=== PATIENT | male | born 1980 | race Caucasian/White ===

== ENCOUNTER 2017-03-10 16:44 | Emergency (ER) | payer BC ==
--- NOTE | 2017-03-10 17:23 | UC ---
Abdominal Pain Male HPI - HPI Summary HPI Summary: 36 yo male with the onset of lower abd pain this AM now primarily RLQ nausea/anorexia no fever no vomiting hurts to move no UTI symptoms - History of Current Complaint Chief Complaint: UCGI Stated Complaint: STOMACH PAIN Time Seen by Provider: 03/10/17 17:07 Hx Obtained From: Patient Onset/Duration: Sudden Onset, Lasting Hours Timing: Constant Severity Initially: Mild Severity Currently: Moderate Pain Intensity: 5 Pain Scale Used: 0-10 Numeric Location: Discrete At: RLQ Radiates: No Character: Burning, Cramping Aggravating Factor(s): Food, Movement Alleviating Factor(s): Rest Associated Signs And Symptoms: Positive: Diaphoresis, Nausea - Allergies/Home Medications Allergies/Adverse Reactions: Allergies Allergy/AdvReac Type Severity Reaction Status Date / Time Naproxen [From Aleve] Allergy Itching Verified 03/10/17 16:52 PMH/Surg Hx/FS Hx/Imm Hx Previously Healthy: Yes - Surgical History Surgical History: None - Family History Known Family History: Positive: Hypertension, Other - dad had AAA - Social History Alcohol Use: Occasionally Alcohol Amount: 18 PACK ON WEEKEND Substance Use Type: Marijuana Smoking Status (MU): Former Smoker Review of Systems Constitutional: Negative Skin: Negative Eyes: Negative ENT: Negative Respiratory: Negative Cardiovascular: Negative Gastrointestinal: Abdominal Pain, Nausea Genitourinary: Negative Motor: Negative Neurovascular: Negative Musculoskeletal: Negative Neurological: Negative Psychological: Negative Is Patient Immunocompromised?: No All Other Systems Reviewed And Are Negative: Yes Physical Exam Triage Information Reviewed: Yes Appearance: Well-Nourished, Ill-Appearing, Pain Distress Vital Signs: Initial Vital Signs Temp 98.3 F 03/10/17 16:49 Pulse 85 03/10/17 16:49 Resp 12 03/10/17 16:49 BP 151/102 03/10/17 16:49 Pulse Ox 96 03/10/17 16:49 Vital Signs Reviewed: Yes Eyes: Positive: Conjunctiva Clear ENT: Positive: Hearing grossly normal. Negative: Nasal congestion, Nasal drainage Neck: Positive: Supple, Nontender Respiratory: Positive: Lungs clear, Normal breath sounds, No respiratory distress Cardiovascular: Positive: RRR, No Murmur Abdomen Description: Positive: Soft, McBurney's Point Tenderness. Negative: Nontender Bowel Sounds: Positive: Present Musculoskeletal: Positive: ROM Intact, No Edema Neurological: Positive: Alert Psychological Exam: Normal Skin Exam: Normal Abd Pain Male Course/Dx - Course Course Of Treatment: d/w Dr. Dempsey. [place] [facility] [place] - Differential Dx/Clinical Impression Provider Diagnoses: RLQ abdominal pain Discharge - Discharge Plan Condition: Stable Disposition: TRANS HIGHER LVL OF CARE FAC Referrals: No Primary Care Phys,NOPCP [Primary Care Provider] - Additional Instructions: k
[2017-03-10 17:39] VITALS: BP 126/64
== END 2017-03-10 17:43 | disposition short-term general hospital (02) ==
LOC: UCEAST 16:44
DX: R10.31 Right lower quadrant pain (principal); Z87.891 Personal history of nicotine dependence; Z88.6 Allergy status to analgesic agent
CPT/HCPCS: 99203; G0463

== ENCOUNTER 2017-03-10 17:58 | Observation (INO) | payer BC ==
[2017-03-10] MEDS ORDERED: Morphine INJ* 4 MG/ML 1 ML CARPUJECT IV ONE ×2 (18:33→21:07)
[2017-03-10] MEDS ORDERED: Ondansetron INJ* 2 MG/ML VIAL IV ONE ×2 (18:33→21:07)
[2017-03-10 18:47] LABS: Hematocrit 47 % (42-52); Hemoglobin 16.3 g/dl (14.0-18.0); Mean Corpuscular HGB Conc 35 g/dl (31-36); Mean Corpuscular Hemoglobin 33 pg (27-31); Mean Corpuscular Volume 95 fL (80-94); Mean Platelet Volume 7 um3 (7.4-10.4); Red Blood Count 4.95 10^6/ul (4.0-5.4); Red Cell Distribution Width 13 % (10.5-15); White Blood Count 21.1 10^3/ul (3.5-10.8)
[2017-03-10 19:04] LABS: ALT 32 U/L (7-52); Albumin 4.9 g/dL (3.2-5.2); Alkaline Phosphatase 70 U/L (34-104); BUN/Creatinine Ratio 27.7 (8-20); Blood Urea Nitrogen 23 mg/dL (6-24); C Reactive Protein 3.32 mg/L (< 5.00); CO2 Carbon Dioxide 22 mmol/L (22-32); Calcium 9.8 mg/dL (8.6-10.3); Chloride 100 mmol/L (101-111); EGFR African American 133.3 (>60); EGFR Non-African American 103.7 (>60); Globulin 2.7 g/dL (2-4); Glucose 109 mg/dL (70-100); Lipase < 10 U/L (11.0-82.0); Sodium 134 mmol/L (133-145); Total Protein 7.6 g/dL (6.4-8.9)
[2017-03-10] MEDS ORDERED: Iohexol 300* (CONTRAST) 10 ML SDV IV ONE (19:23)
[2017-03-10 19:25] LABS: Anion Gap 12 mmol/L (2-11)
--- NOTE | 2017-03-10 21:02 | RAD ---
INDICATION: RIGHT lower quadrant pain. COMPARISON: No relevant prior exams available on the [facility] PACS for comparison. TECHNIQUE: Multidetector CT images were obtained from the lung bases to the ischial tuberosities with 150 mL Omnipaque 300 IV and oral contrast. Multiplanar reformation. REPORT: Mild bibasilar subsegmental atelectasis. Unremarkable liver, gallbladder, pancreas, spleen. Unremarkable upper GI and small bowel. The appendix is visualized descending posterior to the cecum. Near the tip of the appendix there is dilatation up to 1.2 cm diameter with associated mural thickening and mild periappendiceal inflammatory change. Suggestion of subtle associated intraluminal appendicoliths. No periappendiceal abscess evident. Negative for ascites or free air. Small fat-containing umbilical hernia without inflammatory change. Normal adrenal glands. Few small hypodense cortical lesions at the LEFT kidney most consistent with benign cysts. No suspicious focal renal lesions, conspicuous stones, or hydronephrosis. Symmetric nephrograms. Unremarkable ureters and urinary bladder. Symmetric seminal vesicles. Negative for thoracic lymphadenopathy. Normal diameter abdominal aorta and iliac arteries with mild atherosclerotic plaque. Physiologic distention of the IVC. Degenerative spondylosis and facet joint osteoarthritis. Associated reactive endplate sclerosis most prominent at L4-L5. Resendez images saved on the [facility] PACS. IMPRESSION: Early acute appendicitis. Probable associated intramuscular appendicoliths. Negative for periappendiceal abscess.
--- NOTE | 2017-03-10 21:25 | ED ---
Abdominal Pain/Male - HPI Summary HPI Summary: Patient presents to the ED from with CC of RLQ pain which began at 7am this morning immediately upon awaking this morning. He was able to eat breakfast, which did not worsen the pain, but had remained constant. This afternoon, he states the pain began to move to the rest of the abdomen although still more discretely located over the RLQ. Denies urinary symptoms. Denies abdominal surgeries. Denies fevers, but notes to some sweats off and on today. Denies chills. Otherwise healthy, denies medications or allergies. Denies blood thinners. Last PO intake was this afternoon (unsure what time) but liquid. He denies N/V/C/D. Did not eat anything abnormal and last well time was this morning. Worse with movement, better with rest. - History of Current Complaint Chief Complaint: EDAbdPain Stated Complaint: ABD PAIN, COMING FROM CC Time Seen by Provider: 03/10/17 18:26 Hx Obtained From: Patient Onset/Duration: Sudden Onset Timing: Constant Severity Initially: Moderate Severity Currently: Moderate Pain Intensity: 7 Pain Scale Used: 0-10 Numeric Location: Discrete At: RLQ Radiates: Yes Radiates to: Other - abdomen - diffuse Character: Sharp, Dull Aggravating Factor(s): Movement Alleviating Factor(s): Nothing Associated Signs And Symptoms: Positive: Negative - Risk Factors Testicular Torsion: Negative Cardiac Risk Factors: Negative - Allergies/Home Medications Allergies/Adverse Reactions: Allergies Allergy/AdvReac Type Severity Reaction Status Date / Time Naproxen [From Aleve] Allergy Itching Verified 03/10/17 16:52 PMH/Surg Hx/FS Hx/Imm Hx Previously Healthy: Yes Endocrine/Hematology History: Denies: Hx Diabetes Cardiovascular History: Reports: Hx Hypertension History: Denies: Hx Renal Disease - Immunization History Hx Pertussis Vaccination: No Immunizations Up to Date: Unable to Obtain/Confirm Infectious Disease History: No Infectious Disease History: Denies: Traveled Outside the [place] in Last 30 Days - Family History Known Family History: Positive: Hypertension, Other - dad had AAA - Social History Occupation: Employed Full-time Lives: With Family Alcohol Use: Occasionally Alcohol Amount: 18 PACK ON WEEKEND Hx Substance Use: Yes Substance Use Type: Reports: Marijuana Hx Tobacco Use: Yes Smoking Status (MU): Former Smoker Review of Systems Positive: Skin Diaphoresis. Negative: Fever, Chills, Fatigue Eyes: Negative Cardiovascular: Negative Respiratory: Negative Positive: Abdominal Pain, Nausea Genitourinary: Negative Positive: no symptoms reported, see HPI Musculoskeletal: Negative Neurological: Negative All Other Systems Reviewed And Are Negative: Yes Physical Exam Triage Information Reviewed: Yes Vital Signs On Initial Exam: Initial Vitals Temp Pulse Resp BP Pulse Ox 99.2 F 79 14 157/96 98 03/10/17 18:01 03/10/17 18:01 03/10/17 18:01 03/10/17 18:01 03/10/17 18:01 Vital Signs Reviewed: Yes Appearance: Positive: Well-Nourished, Ill-Appearing, Obese Skin: Positive: Warm, Skin Color Reflects Adequate Perfusion Head/Face: Positive: Normal Head/Face Inspection Eyes: Positive: EOMI, JOSE RAFAEL, Conjunctiva Clear Neck: Positive: Supple, Nontender, No Lymphadenopathy Respiratory/Lung Sounds: Positive: Clear to Auscultation, Breath Sounds Present Cardiovascular: Positive: RRR, Pulses are Symmetrical in both Upper and Lower Extremities Abdomen Description: Positive: Soft, McBurney's Point Tenderness, Other: - + obturator; did not perform psoas; - velasquez's. Negative: CVA Tenderness (R), CVA Tenderness (L) Bowel Sounds: Positive: Present Musculoskeletal: Positive: Strength/ROM Intact Neurological: Positive: Sensory/Motor Intact, Alert, Oriented to Person Place, Time, Speech Normal Psychiatric: Positive: Normal, Affect/Mood Appropriate - [place] Coma Scale Coma Scale Total: 15 Diagnostics - Vital Signs Vital Signs Temp Pulse Resp BP Pulse Ox 03/10/17 21:13 18 03/10/17 21:09 99 F 78 18 153/95 97 03/10/17 18:42 20 03/10/17 18:05 77 97 03/10/17 18:04 157/96 03/10/17 18:01 99.2 F 79 14 157/96 98 - Laboratory Lab Results: Lab Results 03/10/17 03/10/17 03/10/17 Range/Units 17:35 17:35 17:35 WBC 21.1 H (3.5-10.8) 10^3/ul RBC 4.95 (4.0-5.4) 10^6/ul Hgb 16.3 (14.0-18.0) g/dl Hct 47 (42-52) % MCV 95 H (80-94) fL MCH 33 H (27-31) pg MCHC 35 (31-36) g/dl RDW 13 (10.5-15) % Plt Count 378 (150-450) 10^3/ul MPV 7 L (7.4-10.4) um3 Neut % (Auto) 82.0 (38-83) % Lymph % (Auto) 12.2 L (25-47) % [place] % (Auto) 3.3 (1-9) % Eos % (Auto) 2.0 (0-6) % Baso % (Auto) 0.5 (0-2) % Absolute Neuts (auto) 17.3 H (1.5-7.7) 10^3/ul Absolute Lymphs (auto) 2.6 (1.0-4.8) 10^3/ul Absolute Monos (auto) 0.7 (0-0.8) 10^3/ul Absolute Eos (auto) 0.4 (0-0.6) 10^3/ul Absolute Basos (auto) 0.1 (0-0.2) 10^3/ul Absolute Nucleated RBC 0 10^3/ul Nucleated RBC % 0 INR (Anticoag Therapy) (0.77-1.02) Sodium 134 (133-145) mmol/L Potassium TNP Chloride 100 L (101-111) mmol/L Carbon Dioxide 22 (22-32) mmol/L Anion Gap 12 H (2-11) mmol/L BUN 23 (6-24) mg/dL Creatinine 0.83 (0.67-1.17) mg/dL Est GFR ( Amer) 133.3 (>60) Est GFR (Non-Af Amer) 103.7 (>60) BUN/Creatinine Ratio 27.7 H (8-20) Glucose 109 H (70-100) mg/dL Lactic Acid 1.5 (0.5-2.0) mmol/L Calcium 9.8 (8.6-10.3) mg/dL Total Bilirubin 0.60 (0.2-1.0) mg/dL AST TNP ALT 32 (7-52) U/L Alkaline Phosphatase 70 (34-104) U/L Troponin I 0.00 (<0.04) ng/mL C-Reactive Protein 3.32 (< 5.00) mg/L Total Protein 7.6 (6.4-8.9) g/dL Albumin 4.9 (3.2-5.2) g/dL Globulin 2.7 (2-4) g/dL Albumin/Globulin Ratio 1.8 (1-3) Lipase < 10 L (11.0-82.0) U/L 03/10/17 03/10/17 Range/Units 17:35 20:18 WBC (3.5-10.8) 10^3/ul RBC (4.0-5.4) 10^6/ul Hgb (14.0-18.0) g/dl Hct (42-52) % MCV (80-94) fL MCH (27-31) pg MCHC (31-36) g/dl RDW (10.5-15) % Plt Count (150-450) 10^3/ul MPV (7.4-10.4) um3 Neut % (Auto) (38-83) % Lymph % (Auto) (25-47) % [place] % (Auto) (1-9) % Eos % (Auto) (0-6) % Baso % (Auto) (0-2) % Absolute Neuts (auto) (1.5-7.7) 10^3/ul Absolute Lymphs (auto) (1.0-4.8) 10^3/ul Absolute Monos (auto) (0-0.8) 10^3/ul Absolute Eos (auto) (0-0.6) 10^3/ul Absolute Basos (auto) (0-0.2) 10^3/ul Absolute Nucleated RBC 10^3/ul Nucleated RBC % INR (Anticoag Therapy) 0.87 (0.77-1.02) Sodium (133-145) mmol/L Potassium 4.1 Chloride (101-111) mmol/L Carbon Dioxide (22-32) mmol/L Anion Gap (2-11) mmol/L BUN (6-24) mg/dL Creatinine (0.67-1.17) mg/dL Est GFR ( Amer) (>60) Est GFR (Non-Af Amer) (>60) BUN/Creatinine Ratio (8-20) Glucose (70-100) mg/dL Lactic Acid (0.5-2.0) mmol/L Calcium (8.6-10.3) mg/dL Total Bilirubin (0.2-1.0) mg/dL AST 18 ALT (7-52) U/L Alkaline Phosphatase (34-104) U/L Troponin I (<0.04) ng/mL C-Reactive Protein (< 5.00) mg/L Total Protein (6.4-8.9) g/dL Albumin (3.2-5.2) g/dL Globulin (2-4) g/dL Albumin/Globulin Ratio (1-3) Lipase (11.0-82.0) U/L Result Diagrams: 03/10/17 17:35 03/10/17 20:18 Lab Statement: Any lab studies that have been ordered have been reviewed, and results considered in the medical decision making process. Abdominal Pain Fem Course/Dx - Course Course Of Treatment: Patient evaluated for RLQ pain which began at 7 am this morning. + obturator; did not perform psoas; - velasquez's. Denies fevers, sweats or chills. Afebrile on arrival with other VS stable. at bedside. Denies smoking or blood thinners. WBC at 20.1. Morphine and zofran given for comfort. Abd/pelvis CT shows Acute early appendicitis. Dr. Delong called at 9: 10pm who agrees to come see the patient. Discussed treatment with patient who is OK with plan. Morphin and zofran given at this time while awaiting consult. Started clear liquids at 9:30pm with cessation to begin at midnight. - Diagnoses Differential Diagnosis/HQI/PQRI: Appendicitis Provider Diagnoses: Appendicitis - Provider Notifications Discussed Care Of Patient With: Chris Delong - 9:10pm agrees to admit Instructed by Provider To: Admit As Inpatient Discharge - Discharge Plan Condition: Stable Disposition: ADMITTED TO [facility]
[2017-03-10] MEDS ORDERED: HYDROmorphone INJ* 2 MG/ML CARPUJECT SYRINGE IV PRN (21:27)
[2017-03-10] MEDS ORDERED: Ondansetron INJ* 2 MG/ML VIAL IV PRN (21:27)
[2017-03-10 21:29] LABS: Urine Bilirubin Negative (Negative); Urine Glucose Negative (Negative); Urine Nitrite Negative (Negative)
[2017-03-10] MEDS: NS 0.9% 1000 ML* 1,000 ML IV SCH (22:35)
[2017-03-10] MEDS ORDERED: Zosyn 3.375 gm X 1 dose, then dose per Pharmacy IVPB ONE ×4 (23:00→23:15)
[2017-03-10] MEDS ORDERED: Morphine INJ* 4 MG/ML 1 ML CARPUJECT IV PRN (23:02)
[2017-03-10] MEDS ORDERED: Zosyn per Pharmacy* NOTE FOLLOW UP PRN (23:05)
[2017-03-11] MEDS: Morphine INJ* 2 MG/ML 1 ML SYRINGE (TWO MG - NEW SYRINGE VERSION) IV PRN ×2 (01:49→07:21)
[2017-03-11] MEDS ORDERED: Piperacillin/Tazobactam VIAL*) 3.375 GM in NS 0.9% 100 ML* 100 ML IVPB SCH (03:00)
[2017-03-11] MEDS: NS 0.9% 1000 ML* 1,000 ML IV SCH (07:18)
[2017-03-11] MEDS ORDERED: Bupivacaine 0.25% SDV* 30 ML ONE (08:29)
[2017-03-11] MEDS ORDERED: Sodium Citrate/Citric Acid* 15 ML UDC ONE (08:47)
[2017-03-11] MEDS ORDERED: fentaNYL* 50 MCG/ML 5 ML VIAL (250 MCG VIAL) ONE (08:53)
[2017-03-11] MEDS ORDERED: Lidocaine 2% PF * 5 ML VIAL ONE (08:58)
[2017-03-11] MEDS ORDERED: Succinylcholine* 20 MG/ML 10 ML VIAL ONE (08:58)
[2017-03-11] MEDS ORDERED: Propofol* 10 MG/ML 20 ML BTL IV PUSH ONE (08:58)
[2017-03-11] MEDS ORDERED: Rocuronium* 10 MG/ML VIAL ONE (09:15)
[2017-03-11] MEDS ORDERED: fentaNYL* 50 MCG/ML 2 ML VIAL (100 MCG VIAL) ONE ×3 (09:22→10:30)
[2017-03-11] MEDS ORDERED: Morphine INJ* 2 MG/ML 1 ML CARPUJECT IV PRN (09:33)
[2017-03-11] MEDS ORDERED: oxyCODONE/Acetamin 5/325 MG* TAB PO PRN (09:33)
[2017-03-11] MEDS ORDERED: HYDROcodone/ACETAMIN 5-325 MG* 1 TAB PO PRN (09:33)
[2017-03-11] MEDS ORDERED: PROCHLORPERAZINE INJ 5 MG/ML 2 ML VIAL IV PRN (09:33)
[2017-03-11] MEDS ORDERED: Ondansetron INJ* 2 MG/ML VIAL ONE (09:35)
[2017-03-11] MEDS ORDERED: Neostigmine Methylsulfate* 2 MG/2 ML SYRINGE ONE (09:42)
[2017-03-11] MEDS ORDERED: Glycopyrrolate IV* 0.2 MG/ML 1 ML VIAL ONE (09:42)
--- NOTE | 2017-03-11 10:11 | SURGPN ---
Brief Operative Note - Surgery Procedures: Pre-OP Diagnoses: acute appendicitis Post-op Diagnosis: acu appendicitis, umbilical hernia Procedure: Laparoscopic appendectomy, umbilical hernia repair Surgeon: Baljeet Asst: none Anethesia: KOBI Couch EBL: minimal IVF: crystalloid Specimen: appendix Drains: none
[2017-03-11] MEDS ORDERED: oxyCODONE/Acetamin 5/325 MG* TAB ONE (10:54)
[2017-03-11] MEDS: fentaNYL* 50 MCG/ML 2 ML VIAL (100 MCG VIAL) IV PRN ×2 (10:57→11:20)
[2017-03-11 11:55] VITALS: BP 156/98
--- NOTE | 2017-03-11 12:44 | HP ---
CC: Charli [facility] * HISTORY AND PHYSICAL: DATE OF ADMISSION: 03/10/17 HISTORY OF PRESENT ILLNESS: I was contacted by the emergency room last night with regards to Mr. Azevedo, a 36-year-old gentleman who presented to [facility] and was transferred onto the emergency room with complaints of severe right lower quadrant pain. Workup in the emergency room including the labs and the CAT scan was consistent with acute appendicitis and I admitted the patient to my service for planned intervention. The patient was started on antibiotics. The patient describes onset of symptoms yesterday morning, started in periumbilical region and went down to the right lower quadrant, nonradiating, decreased appetite, but still not complete anorexia. No nausea. No vomiting. No fevers, but positive "sweats." Last bowel movement 2 days ago. No constipation or diarrhea. The patient is passing flatus. The patient denies any previous similar symptoms, pain improved with morphine and lying still, exacerbated with movement. PAST MEDICAL HISTORY: None. PAST SURGICAL HISTORY: None. MEDICATIONS: None. ALLERGIES: NAPROSYN leads to a rash, he took it for headache in the past. FAMILY HISTORY: No history of ulcerative colitis or Crohn's disease. The patient's father did at the age of 38 from a "ruptured heart," but what sounds like a ruptured aortic aneurysm. His dad was a smoker and obese. Mother is alive and well. SOCIAL HISTORY: He is a nonsmoker. He is . Lives with his and stepchild. He has got a baby on the way. 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 REVIEW OF SYSTEMS: As described above, sweating, but no fevers. No reflux type symptoms. No shortness of breath or chest pain. Does have pain on inspiration. Good exercise tolerance. No bleeding or clotting disorders. PHYSICAL EXAMINATION GENERAL: Alert and oriented x3, in no apparent distress. VITAL SIGNS: The patient has been afebrile. T-max is 99.2, blood pressure 155/ 95, heart rate 80s, O2 sat 100, respirations are 16. HEENT: Normocephalic, atraumatic. Sclerae anicteric. Mucous membranes are dry. NECK: No lymphadenopathy. LUNGS: Clear to auscultation bilaterally at the apices. HEART: S1, S2. No murmurs appreciated. ABDOMEN: Soft, obese. The patient's BMI is 34. He is tender on palpitation at the umbilicus and at the right lower quadrant. No CVA tenderness. No rebound. Positive voluntary guarding. Negative Rovsing's. Negative psoas. RECTAL: Exam not performed. EXTREMITIES: Without pitting edema. DIAGNOSTIC STUDIES/LAB DATA: Labs reviewed show white count of 21, INR 0.87, glucose 109, BUN and creatinine ratio 27.7. The patient underwent a CAT scan of the abdomen and pelvis with p.o. and IV contrast. These images as well as report reviewed. We see inflamed retrocecal appendix that likely has appendicolith. No evidence of perforation or free air. Normal diameter aorta. IMPRESSION: Acute appendicitis. PLAN: Recommendation is for a laparoscopic appendectomy. I outlined the details of the procedure, going over the risks, benefits, and alternatives. The patient wishes to proceed. We spoke of the possible complications, which include but not limited to bleeding, infection, abscess formation, adjacent organ injury, and need for additional procedures, need for open procedure. The patient signed consent and wished to proceed with surgical intervention. He has received already at least one dose of Zosyn and he is n.p.o. getting IV fluids. [id number]/[facility] #: [id number] [facility]
--- NOTE | 2017-03-12 03:31 | OP ---
CC: Radha Augustin; [facility] * DATE OF OPERATION: 03/11/17 - ROOM #331 DATE OF : 76 SURGEON: Chris Delong MD SOCCER COMMENTATOR: None. ANESTHESIOLOGIST: Eduardo Couch MD ANESTHESIA: General anesthesia. PRE-OP DIAGNOSIS: Acute appendicitis. POST-OP DIAGNOSES: Acute appendicitis and umbilical hernia. OPERATIVE PROCEDURE: Laparoscopic appendectomy and primary umbilical hernia repair. ESTIMATED BLOOD LOSS: Minimal blood loss. IV FLUIDS: cc of crystalloid fluid given. SPECIMEN: Appendix. DRAINS: None. COUNTS: Lap pad count and instrument count correct at the end of the procedure. DESCRIPTION OF PROCEDURE: The patient was identified in the preoperative area. Case discussed with him and his . Full H and P was dictated. The patient was marked, consent signed. He was taken back to the operating room. Preoperative antibiotics had been given on the floor in the overnight period. We did not repeat the dose. General anesthesia was induced. The patient's abdomen was prepped and draped in a standard surgical fashion and a time-out was performed. Folds of the umbilicus were elevated anteriorly and a Veress needle was inserted into the abdominal cavity, which was then allowed to insufflate to a pressure of 15 mmHg. The patient tolerated the insufflation well. A right upper quadrant incision was made and a 12-mm trocar was inserted through this. Laparoscope was inserted through that and there was no evidence of injury from the trocar insertion or from the Veress needle, which was then removed. An umbilical insertion was made and a 5-mm trocar was inserted through this. There was an obvious umbilical defect approximately 1 cm. An additional 5-mm trocar was then placed in the suprapubic area. The table was repositioned. The base of the appendix was identified. There was some scant free fluid in the paracolic gutter. Liver appeared normal. Gallbladder was distended, but normal. Bowel was also in normal limits. Next, a blunt dissection was used to free up the tip of the appendix, which was up towards the liver edge. We were able to bring this up and more medial. Electrocautery was used to bring this over as well. Next, a window was made at the base of the appendix and a 45-mm veras SABRINA stapling device was fired across this right at the base of the cecum through a healthy tissue. Additional dissection was carried out with cautery until we could isolate the mesoappendix in the best fashion and a 45-mm FileTrek SABRINA stapling device was used to fire across this. Hemostasis was excellent. The appendix was placed in an endoscopic retrieval bag and brought out through the right upper quadrant port site. We did place a gauze in the abdomen to absorb any fluid and take a look at the staple lines, which appeared intact. The gauze was then removed. Attention was then turned towards the umbilicus. A 5-mm trocar was removed at this and a 0 Surgipro suture in a figure-of-8 fashion was used to reapproximate the fascia through this small incision. All three skin incisions were then reapproximated. The patient was waking up at this point and a suture at the umbilicus broke down. For this reason, we removed the 4-0 Monocryl at this site as well as the Prolene, extended our incision inferiorly and made flaps laterally. The hernia defect appeared about 1.5 cm and additional 0 Surgipro suture was used in a figure-of-8 fashion to close the defect. 4-0 Monocryl suture was utilized at the skin layer followed by Steri-Strips and sterile dressing. The patient tolerated the procedure well, was woken up in the OR, and transferred to PACU in stable condition. [id number]/[facility] #: [id number] GERI
--- NOTE | 2017-03-21 01:19 | DS ---
CC: Charli Garcia; [facility]. DISCHARGE SUMMARY: DATE OF ADMISSION: 03/10/17 DATE OF DISCHARGE: 03/11/17 HISTORY: Mr. Azevedo is a 36-year-old gentleman who presented to the emergency room on 03/10/17 with c omplaints of abdominal pain. Workup in the emergency room included CAT scan and labs that was consis tent with acute appendicitis. The patient was admitted to my service in the overnight period and I t ook him to the operating room on the first full hospital day where he underwent a laparoscopic append ectomy and umbilical hernia repair. Please see separate report for details. The procedure was uneven tful and the patient was discharged home later that day after the procedure for planned followup in o offices. [id number]/[facility] #: [id number]
== END 2017-03-11 11:57 | disposition home or self-care (01) ==
LOC: ED 17:58 → SSU 21:27
PROVIDERS: ADMIT Surgery; ATTEND Surgery
PROC: 0DTJ4ZZ Resection of Appendix, Percutaneous Endoscopic Approach (ICD-10-PCS; principal; 2017-03-11 08:36)
DX: Z87.891 Personal history of nicotine dependence (principal); R10.31 Right lower quadrant pain
CPT/HCPCS: 36415; 74177; 80053; 81003; 83605; 83690; 84484; 85025; 85610; 86140; 88304; 96374; 96375; 96376; 99285; A9270-GY; C1776; G0378; J0330; J2270; J2405; J2543; J2704; J3010; Q9967